=== PATIENT | male | born 1980 | race Caucasian/White ===

== ENCOUNTER 2016-05-11 20:01 | Emergency (ER) | payer OTHER ==
[~2016-05-11] VITALS: Ht 185.4 cm; Wt 122.5 kg
[~2016-05-11 20:01] MED LIST: ALBUTEROL0.09 MG/A2 INH; ANUSOL-HC25 MG RC; ASPIRIN ADULT L81 M1 PO; ASPIRIN CHILDRE81 MG PO; ATENOLOL; BACTRIM DS 8001 TA1 PO; CIALIS2.5 MG PO; CLARITIN10 MG PO; CLINDAMYCIN HC300 MG PO; CLINDAMYCIN150 MG PO; DELTASONE20 M1 PO; DICLOFENAC POTA50 MG PO; DOXYCYCLINE MO100 MG PO; FLEXERIL10 MG PO; GABAPENTIN800 MG PO; GLUCOTROL5 MG PO; KEFLEX500 M1 PO; KEFLEX500 MG PO; LAMICTAL1 TAB; LAMICTAL100 MG PO; LAMICTAL150 MG PO; MEDROL DOSEPAK4 MG PO; METFORMIN500 MG PO; MOTRIN800 MG PO; NKHM; NORCO 325 MG-101 TAB PO; NORCO 325 MG-51 TAB PO; PEPCID20 MG PO; PHENERGAN25 M1 PO; POTASSIUM20 MEQ PO; PREDNICOT10 MG PO; PROAIR HFA0.09 MG/AC INH; PROAIR HFA8.5 GM INH; PROTONIX40 MG PO; TRAMADOL50 MG PO; ULTRAM50 MG PO; VICODIN 5/500 505 MG PO; VITAMIN D50000 I3 PO; ZOFRAN ODT4 MG SL
[2016-05-11] MEDS ORDERED: METFORMIN1000 MG PO (20:26)
[2016-05-11 20:46] LABS: BASO # 0.1 10*3/uL (0.0-0.1); EOS # 0.1 10*3/uL (0.0-0.4); EOS % 1.7 % (1.0-4.0); HEMOGLOBIN 14.9 g/dl (14.0-18.0); LYMPH # 2.4 10*3/uL (1.3-4.4); LYMPH % 33.9 % (27.0-41.0); MEAN CELL VOLUME 93.2 fl (80.0-94.0); MEAN CORPUSCULAR HGB 31.6 pg (27.0-31.0); MEAN CORPUSCULAR HGB CONC 33.9 g/dl (33.0-37.0); MEAN PLATELET VOLUME 9.7 fl (9.6-12.3); MONO # 0.6 10*3/uL (0.1-1.0); MONO % 8.2 % (3.0-9.0); NEUT # 3.8 10*3/uL (2.3-7.9); NEUT % 54.9 % (47.0-73.0); PLATELET COUNT AUTOMATED 363 10*3/uL (130-400); RED BLOOD COUNT 4.72 10*6/uL (4.50-5.90)
[2016-05-11 20:58] LABS: PROTHROMBIN TIME 10.3 SECONDS (9.0-12.4)
[2016-05-11 21:05] LABS: ALBUMIN 3.9 gm/dl (3.1-4.5); ALKALINE PHOSPHATASE 54 U/L (45-117); BILIRUBIN, TOTAL 0.3 mg/dl (0.2-1.0); BUN 8 mg/dl (7-24); CARBON DIOXIDE 32 mmol/L (21-32); CHLORIDE 105 mmol/L (98-107); EST GLOM FILT AFRICAN AMERICAN > 60 ml/min; GLUCOSE 123 mg/dL (65-99); SGOT/AST 19 IU/L (3-35); SGPT/ALT 36 U/L (12-78); SODIUM 145 mmol/L (136-145); TOTAL PROTEIN 7.6 gm/dL (6.4-8.2)
[2016-05-11] MEDS ORDERED: Motrin,Rufen800 MG PO (23:05)
[2016-05-11] MEDS ORDERED: NORCO 5-325 TA1 EACH PO (23:05)
== END 2016-05-11 23:19 | disposition home or self-care (01) ==
LOC: ED 20:01
PROVIDERS: Emergency Medicine Emergency Medical Services
DX: S30.1XXA Contusion of abdominal wall, initial encounter (principal); F17.200 Nicotine dependence, unspecified, uncomplicated; Z88.0 Allergy status to penicillin; W22.8XXA Striking against or struck by other objects, initial encounter; Y93.89 Activity, other specified; Y92.89 Other specified places as the place of occurrence of the external cause; Y99.9 Unspecified external cause status

== ENCOUNTER → 2016-05-14 | Outpatient (CLI) | payer OTHER ==
[~2016-05-14] MED LIST changes: +METFORMIN1000 MG PO; +Motrin,Rufen800 MG PO; +NORCO 5-325 TA1 EACH PO
== END | disposition home or self-care (01) ==
LOC: RAD 16:21
DX: R10.12 Left upper quadrant pain (principal)

== ENCOUNTER 2017-01-21 18:18 | Emergency (ER) | payer OTHER ==
[~2017-01-21] VITALS: Wt 122.5 kg
[2017-01-21 19:13] LABS: BASO # 0.1 10*3/uL (0.0-0.1); BASO % 0.6 % (0.0-1.0); EOS # 0.2 10*3/uL (0.0-0.4); EOS % 2.4 % (1.0-4.0); HEMATOCRIT 44.9 % (42.0-52.0); HEMOGLOBIN 15.9 g/dl (14.0-18.0); LYMPH % 23.1 % (27.0-41.0); MEAN CELL VOLUME 90.2 fl (80.0-94.0); MEAN CORPUSCULAR HGB 31.9 pg (27.0-31.0); MEAN CORPUSCULAR HGB CONC 35.4 g/dl (33.0-37.0); MEAN PLATELET VOLUME 10.1 fl (9.6-12.3); NEUT # 5.5 10*3/uL (2.3-7.9); NEUT % 62.4 % (47.0-73.0); PLATELET COUNT AUTOMATED 369 10*3/uL (130-400); RED BLOOD COUNT 4.98 10*6/uL (4.50-5.90); WHITE BLOOD COUNT 8.7 10*3/uL (4.8-10.8)
[2017-01-21 19:46] LABS: ALBUMIN 3.9 gm/dl (3.1-4.5); ALKALINE PHOSPHATASE 59 U/L (45-117); BUN 10 mg/dl (7-24); CHLORIDE 103 mmol/L (98-107); CREATININE 1.04 mg/dL (0.70-1.30); LIPASE 138 U/L (73-393); POTASSIUM 3.8 mmol/L (3.5-5.1); SGOT/AST 17 IU/L (3-35); SGPT/ALT 34 U/L (12-78); SODIUM 140 mmol/L (136-145); TOTAL PROTEIN 7.7 gm/dL (6.4-8.2)
== END 2017-01-21 19:49 | disposition home or self-care (01) ==
LOC: ED 18:18
PROVIDERS: Nurse Practitioner Family
DX: A08.4 Viral intestinal infection, unspecified (principal); F17.200 Nicotine dependence, unspecified, uncomplicated; Z88.0 Allergy status to penicillin

== ENCOUNTER 2020-03-17 17:48 | Emergency (ER) | payer OTHER ==
[~2020-03-17] VITALS: Ht 185.4 cm; Wt 127.0 kg
[~2020-03-17 17:48] MED LIST changes: +PROVENTIL HFA6.7 GM INH
== END 2020-03-17 20:31 | disposition home or self-care (01) ==
LOC: ED 17:48
DX: S80.11XA Contusion of right lower leg, initial encounter (principal); M25.571 Pain in right ankle and joints of right foot; E11.9 Type 2 diabetes mellitus without complications; Z88.0 Allergy status to penicillin; Z79.899 Other long term (current) drug therapy; W01.198A Fall on same level from slipping, tripping and stumbling with subsequent striking against other object, initial encounter; Y93.89 Activity, other specified; Y92.003 Bedroom of unspecified non-institutional (private) residence as the place of occurrence of the external cause; Y99.8 Other external cause status

== ENCOUNTER 2020-08-04 05:36 | Emergency (ER) | payer BC, OTHER ==
[~2020-08-04] VITALS: Ht 180.3 cm; Wt 115.7 kg
[2020-08-04 08:22] LABS: BASO # 0.1 10*3/uL (0.0-0.1); BASO % 0.8 % (0.0-1.0); EOS # 0.1 10*3/uL (0.0-0.4); EOS % 1.9 % (1.0-4.0); HEMATOCRIT 43.3 % (42.0-52.0); LYMPH # 2.2 10*3/uL (1.3-4.4); LYMPH % 30.8 % (27.0-41.0); MEAN CELL VOLUME 93.3 fl (80.0-94.0); MEAN CORPUSCULAR HGB 31.5 pg (27.0-31.0); MEAN CORPUSCULAR HGB CONC 33.7 g/dl (33.0-37.0); MEAN PLATELET VOLUME 10.1 fl (9.6-12.3); MONO # 0.6 10*3/uL (0.1-1.0); MONO % 8.7 % (3.0-9.0); NEUT # 4.2 10*3/uL (2.3-7.9); NEUT % 57.5 % (47.0-73.0); PLATELET COUNT AUTOMATED 330 10*3/uL (130-400); RED BLOOD COUNT 4.64 10*6/uL (4.50-5.90); RED CELL DISTRI WIDTH 12.7 % (0-14.5); WHITE BLOOD COUNT 7.2 10*3/uL (4.8-10.8)
[2020-08-04 08:36] LABS: ALBUMIN 3.7 gm/dl (3.1-4.5); ALKALINE PHOSPHATASE 51 U/L (45-117); BUN 14 mg/dl (7-24); CHLORIDE 107 mmol/L (98-107); CREATININE 0.94 mg/dL (0.70-1.30); POTASSIUM 3.8 mmol/L (3.5-5.1); SGOT/AST 11 IU/L (3-35); SGPT/ALT 21 U/L (12-78); SODIUM 139 mmol/L (136-145)
[2020-08-04 08:42] LABS: BILIRUBIN Negative (Negative); BLOOD Negative (Negative); CLARITY Clear (Clear); COLOR Yellow (Yellow); GLUCOSE Negative (Negative); KETONE Negative (Negative); LEUKO ESTERASE Negative (Negative); NITRITE Negative (Negative)
[2020-08-04 08:51] LABS: EPITHELIAL CELLS 0-2
[2020-08-04] MEDS ORDERED: MEDROL DOSEPAK4 MG PO (11:11)
== END 2020-08-04 11:08 | disposition home or self-care (01) ==
LOC: ED 05:36
PROVIDERS: Emergency Medicine
DX: M54.41 Lumbago with sciatica, right side (principal); Z88.0 Allergy status to penicillin; Z79.899 Other long term (current) drug therapy; Z98.890 Other specified postprocedural states

== ENCOUNTER 2022-03-24 17:53 | Emergency (ER) | payer OTHER ==
[~2022-03-24] VITALS: Ht 185.4 cm; Wt 131.5 kg
[2022-03-24 18:33] LABS: BASO # 0.1 10*3/uL (0.0-0.1); BASO % 0.8 % (0.0-1.0); EOS # 0.1 10*3/uL (0.0-0.4); EOS % 1.7 % (1.0-4.0); HEMATOCRIT 46.1 % (42.0-52.0); LYMPH # 2.1 10*3/uL (1.3-4.4); LYMPH % 24.9 % (27.0-41.0); MEAN CELL VOLUME 93.3 fl (80.0-94.0); MEAN CORPUSCULAR HGB CONC 34.3 g/dl (33.0-37.0); MEAN PLATELET VOLUME 9.9 fl (9.6-12.3); MONO # 0.6 10*3/uL (0.1-1.0); MONO % 7.1 % (3.0-9.0); NEUT # 5.5 10*3/uL (2.3-7.9); NEUT % 65.1 % (47.0-73.0); PLATELET COUNT AUTOMATED 386 10*3/uL (130-400); RED BLOOD COUNT 4.94 10*6/uL (4.50-5.90); RED CELL DISTRI WIDTH 12.5 % (0-14.5); WHITE BLOOD COUNT 8.5 10*3/uL (4.8-10.8)
[2022-03-24] MEDS ORDERED: NAPROSYN500 MG PO (19:04)
== END 2022-03-24 19:30 | disposition home or self-care (01) ==
LOC: ED 17:53
PROVIDERS: Physician Assistant
DX: M79.671 Pain in right foot (principal); Z88.0 Allergy status to penicillin; Z98.890 Other specified postprocedural states; E11.9 Type 2 diabetes mellitus without complications

== ENCOUNTER 2023-05-20 21:15 | Emergency (ER) | payer OTHER ==
[~2023-05-20] VITALS: Ht 185.4 cm; Wt 136.1 kg
[~2023-05-20 21:15] MED LIST changes: +NAPROSYN500 MG PO
[2023-05-20 21:43] LABS: EOS # 0.1 10*3/uL (0.0-0.4); HEMATOCRIT 41.5 % (42.0-52.0); LYMPH # 1.7 10*3/uL (1.3-4.4); LYMPH % 28.4 % (27.0-41.0); MEAN CELL VOLUME 93.3 fl (80.0-94.0); MEAN CORPUSCULAR HGB 31.5 pg (27.0-31.0); MEAN CORPUSCULAR HGB CONC 33.7 g/dl (33.0-37.0); MEAN PLATELET VOLUME 9.5 fl (9.6-12.3); MONO # 0.6 10*3/uL (0.1-1.0); MONO % 9.9 % (3.0-9.0); NEUT # 3.5 10*3/uL (2.3-7.9); NEUT % 60.4 % (47.0-73.0); PLATELET COUNT AUTOMATED 327 10*3/uL (130-400); RED BLOOD COUNT 4.45 10*6/uL (4.50-5.90); RED CELL DISTRI WIDTH 12.5 % (0-14.5); WHITE BLOOD COUNT 5.9 10*3/uL (4.8-10.8)
[2023-05-20 21:59] LABS: ALKALINE PHOSPHATASE 54 U/L (46-116); BUN 8 mg/dl (9-23); CHLORIDE 102 mmol/L (98-107); SGPT/ALT 66 U/L (5-49); TOTAL PROTEIN 6.8 gm/dL (6.0-8.0)
[2023-05-20] MEDS ORDERED: Dexamethasone Sodium Phospha 20 MG/5 ML VIAL IM ONE (22:20)
[2023-05-20] MEDS ORDERED: Ketorolac Tromethamine 60 MG/2 ML VIAL IM ONE (22:20)
[2023-05-20] MEDS ORDERED: ANTI-DIARRHEAL2 MG PO (22:46)
[2023-05-20] MEDS ORDERED: MELOXICAM15 MG PO (22:46)
== END 2023-05-20 23:11 | disposition home or self-care (01) ==
LOC: ED 21:15
PROVIDERS: Internal Medicine
DX: M94.0 Chondrocostal junction syndrome [Tietze] (principal); R19.7 Diarrhea, unspecified; Z88.0 Allergy status to penicillin

== ENCOUNTER 2024-09-17 20:31 | Observation (INO) | payer MEDICAID ==
[~2024-09-17] VITALS: Ht 185.4 cm; Wt 136.1 kg
[~2024-09-17 20:31] MED LIST changes: +ANTI-DIARRHEAL2 MG PO; +MELOXICAM15 MG PO; +QUETIAPINE FUM100 M3 PO
[2024-09-17 20:37] VITALS: BP 137/89
[2024-09-17 21:00] LABS: BASO # 0.1 10*3/uL (0.0-0.1); BASO % 0.9 % (0.0-1.0); EOS # 0.1 10*3/uL (0.0-0.4); EOS % 1.7 % (1.0-4.0); MEAN CELL VOLUME 96.1 fl (80.0-94.0); MEAN CORPUSCULAR HGB 31.9 pg (27.0-31.0); MEAN PLATELET VOLUME 9.6 fl (9.6-12.3); MONO # 0.7 10*3/uL (0.1-1.0); MONO % 11.9 % (3.0-9.0); NEUT # 2.9 10*3/uL (2.3-7.9); NEUT % 53.9 % (47.0-73.0); NUCLEATED RED BLOOD CELL 0.0 % (0.0-0.0); NUCLEATED RED BLOOD CELL 0.0 10*3/uL (0.0-0.0); PLATELET COUNT AUTOMATED 312 10*3/uL (130-400); RED CELL DISTRI WIDTH 13.2 % (0-14.5)
[2024-09-17 21:11] LABS: ACT PARTIAL THROMBO TIME 27.2 SECONDS (20.0-32.1)
[2024-09-17 21:24] LABS: BUN 11 mg/dl (9-23); SGPT/ALT 19 U/L (5-49)
[2024-09-17] MEDS ORDERED: Ondansetron Hydrochloride 4 MG/2 ML VIAL IV ONE (22:50)
[2024-09-17] MEDS ORDERED: ASPIRIN, CHEWABLE 81 MG TAB PO ONE (22:50)
[2024-09-17] MEDS ORDERED: BISACODYL 10 MG SUPP R PRN (23:35)
[2024-09-17] MEDS ORDERED: BISACODYL 5 MG TAB PO PRN (23:35)
[2024-09-17] MEDS ORDERED: Ondansetron Hydrochloride 4 MG/2 ML VIAL IV PRN (23:35)
[2024-09-17] MEDS ORDERED: TEMAZEPAM 15 MG CAP PO PRN (23:35)
[2024-09-17] MEDS ORDERED: Acetaminophen/Hydrocodone 5 MG/325 MG TABLET PO PRN (23:35)
[2024-09-17] MEDS ORDERED: ACETAMINOPHEN 650 MG SUPP R PRN (23:35)
[2024-09-17] MEDS ORDERED: ACETAMINOPHEN 325 MG TAB PO PRN (23:35)
[2024-09-17] MEDS ORDERED: DEXTROSE 50% 25 GM/50 ML VIAL IV PRN (23:50)
[2024-09-17] MEDS ORDERED: LISINOPRIL2.5 MG PO (23:59)
[2024-09-17] MEDS ORDERED: PIOGLITAZONE HC30 MG PO (23:59)
[2024-09-17] MEDS ORDERED: MINIPRESS2 M1 PO (23:59)
[2024-09-17] MEDS ORDERED: ATORVASTATIN CA10 M1 PO (23:59)
[2024-09-18 00:45] VITALS: BP 119/57
[2024-09-18] MEDS ORDERED: Regadenoson 0.4 MG/5 ML SYR IV ONE (05:37)
[2024-09-18 05:41] LABS: BUN 11 mg/dl (9-23); FREE T4 1.25 ng/dl (0.89-1.76); LDL CHOLESTEROL 45 mg/dL (9-159); VITAMIN D, 25-HYDROXY 34.3 ng/mL (30-100)
[2024-09-18 06:03] LABS: BASO # 0.0 10*3/uL (0.0-0.1); BASO % 0.8 % (0.0-1.0); EOS # 0.2 10*3/uL (0.0-0.4); EOS % 3.0 % (1.0-4.0); MEAN CELL VOLUME 96.1 fl (80.0-94.0); MEAN CORPUSCULAR HGB 31.7 pg (27.0-31.0); MEAN PLATELET VOLUME 9.8 fl (9.6-12.3); MONO # 0.6 10*3/uL (0.1-1.0); MONO % 11.8 % (3.0-9.0); NEUT # 2.4 10*3/uL (2.3-7.9); NEUT % 47.5 % (47.0-73.0); NUCLEATED RED BLOOD CELL 0.0 % (0.0-0.0); NUCLEATED RED BLOOD CELL 0.0 10*3/uL (0.0-0.0); PLATELET COUNT AUTOMATED 274 10*3/uL (130-400); RED CELL DISTRI WIDTH 13.3 % (0-14.5)
[2024-09-18] MEDS ORDERED: INSULIN LISPRO 1 UNIT/0.01 ML SQ SCH (07:30)
[2024-09-18] MEDS ORDERED: Technetium Tc 99M Tetrofosmi 0.23 MG KIT IJ SCH (07:30)
[2024-09-18 08:18] VITALS: BP 122/78
[2024-09-18] MEDS ORDERED: VISTARIL25 MG PO (08:18)
[2024-09-18] MEDS ORDERED: LISINOPRIL 2.5 MG TAB PO SCH (10:00)
[2024-09-18] MEDS ORDERED: Prazosin Hydrochloride 1 MG CAP PO SCH (10:00)
[2024-09-18] MEDS ORDERED: ASPIRIN ENTERIC COATED 81 MG TAB PO SCH (10:00)
[2024-09-18] MEDS ORDERED: LOPRESSOR25 MG PO (11:27)
[2024-09-18] MEDS ORDERED: ATORVASTATIN CA40 M1 PO (11:27)
[2024-09-18] MEDS ORDERED: ASPIRIN ADULT L81 M2 PO (11:27)
[2024-09-18] MEDS ORDERED: PERFLUTREN PROTEIN-A MICROSPHR 3 ML VIAL IV ONE (12:24)
[2024-09-18] MEDS ORDERED: ATORVASTATIN CALCIUM 40 MG TABLET PO SCH (22:00)
== END 2024-09-18 12:28 | disposition home or self-care (01) ==
LOC: ED 20:31 → EDHOLD 23:10
PROVIDERS: Emergency Medicine; ADMIT Internal Medicine; ATTEND Internal Medicine
DX: R07.89 Other chest pain (principal); I10 Essential (primary) hypertension; E78.5 Hyperlipidemia, unspecified; F31.9 Bipolar disorder, unspecified; M25.512 Pain in left shoulder; D53.9 Nutritional anemia, unspecified; E11.65 Type 2 diabetes mellitus with hyperglycemia; I25.10 Atherosclerotic heart disease of native coronary artery without angina pectoris; Z79.82 Long term (current) use of aspirin; Z79.4 Long term (current) use of insulin; Z79.899 Other long term (current) drug therapy